=== PATIENT | female | born 1965 | race Caucasian/White ===

== ENCOUNTER 2016-11-23 10:00 | Inpatient (IN) | payer MEDICARE ==
[~2016-11-23] VITALS: Ht 162.6 cm; Wt 59.1 kg
[~2016-11-23 10:00] MED LIST: ACET325T14 PO; AMAN100C7 PO; BACL-19 PO; BISA10SU54 PR; CEFD300C2 PO; CITA10TA4 PO; ENOX40SY4 SQ; LACT1CAP24 PO; LISI30TA4 PO; MAGN400O4 PO; MELA1TAB22 PO; MULT-658 PO; NA P133E2 PR; ONDA4TAB7 PO; OXYC5TAB3 PO; TEMA15CA6 PO; VANC125C2 PO
[2016-11-23] MEDS ORDERED: FENTANYL PF 100 MCG/2ML IV ONE (10:30)
[2016-11-23] MEDS ORDERED: SODIUM CHLORIDE 0.9% 1,000ML IVBOLUS ONE (10:30)
[2016-11-23] MEDS ORDERED: SODIUM CHLORIDE FLUSH 10ML SYR IVF ONE (10:30)
[2016-11-23] MEDS ORDERED: CEFTRIAXONE PMX 1GM/50ML 50 ML IVPB ONE (10:30)
[2016-11-23] MEDS ORDERED: FENTANYL PF 100 MCG/2ML ONE (10:31)
[2016-11-23] MEDS ORDERED: CEFTRIAXONE PMX 1GM/50ML 50 ML ONE (10:42)
[2016-11-23 11:02] LABS: HEMOGLOBIN 9.9 g/dL (11.7-16.4)
[2016-11-23] MEDS ORDERED: ASPI-496 PO (11:12)
[2016-11-23] MEDS ORDERED: VITAMIN B COMPLEX PR (11:12)
[2016-11-23] MEDS ORDERED: POLY17PO5 PO (11:12)
[2016-11-23] MEDS ORDERED: LACT10SO28 PO (11:12)
[2016-11-23] MEDS ORDERED: MEGE400O2 PO (11:12)
[2016-11-23 11:14] LABS: ASPARTATE AMINO TRANSFERASE 12 U/L (15-37); BLOOD UREA NITROGEN 100 mg/dL (7-18)
[2016-11-23] MEDS ORDERED: SENN8.6T98 PO (11:19)
[2016-11-23] MEDS ORDERED: IRON SULFATE PO (11:19)
[2016-11-23] MEDS ORDERED: SODIUM CHLORIDE 0.9% 1,000 ML IV ONE (11:30)
[2016-11-23 11:54] LABS: DIFF TOTAL CELLS COUNTED 100 CELL DIFF
[2016-11-23 11:55] LABS: ANISOCYTOSIS 1+; VERIFY COUNTS? YES
[2016-11-23] MEDS: NOREPINEPHRINE 4 MG in SODIUM CHLORIDE 0.9% 246 ML IV PRN ×2 (12:15→20:06)
[2016-11-23] MEDS ORDERED: LIDOCAINE 1%, 20ML ONE (12:29)
[2016-11-23] MEDS ORDERED: LIDOCAINE 1%, 20ML INFIL ONE (13:00)
[2016-11-23] MEDS: FENTANYL PF 100 MCG/2ML IVPush PRN ×2 (13:10→21:41)
[2016-11-23] MEDS ORDERED: VANCOMYCIN PER PHARMACY MC PRN (16:00)
[2016-11-23] MEDS: VANCOMYCIN 50 MG/ML ORAL SUSP PO SCH ×2 (16:00→20:54)
[2016-11-23] MEDS ORDERED: BISACODYL 10 MG SUPP PR PRN (16:00)
[2016-11-23] MEDS ORDERED: DOCUSATE 100 MG CAPSULE PO PRN (16:00)
[2016-11-23] MEDS ORDERED: ONDANSETRON 2MG/ML, 2ML IVP PRN (16:00)
[2016-11-23] MEDS ORDERED: PHARMACOKINETIC MONITORING MC PRN (16:00)
[2016-11-23] MEDS: HEPARIN 5,000 UNITS/ML, 1ML SQ SCH (16:16)
[2016-11-23] MEDS: PIPERACILLIN/TAZO/PMX 3.375GM 50 ML IV SCH ×2 (16:16→22:52)
[2016-11-23] MEDS ORDERED: VANCOMYCIN 1,200 MG in SODIUM CHLORIDE 0.9% 250 ML IV ONE (16:30)
[2016-11-23] MEDS ORDERED: FAMOTIDINE 20 MG/2 ML IV SCH (21:00)
[2016-11-24] MEDS: HEPARIN 5,000 UNITS/ML, 1ML SQ SCH ×4 (00:13→23:59)
[2016-11-24 04:00] VITALS: BP 98/58
[2016-11-24] MEDS: PIPERACILLIN/TAZO/PMX 3.375GM 50 ML IV SCH (04:13)
[2016-11-24] MEDS: NOREPINEPHRINE 4 MG in SODIUM CHLORIDE 0.9% 246 ML IV PRN ×2 (04:34→19:01)
[2016-11-24 04:50] LABS: BLOOD UREA NITROGEN 69 mg/dL (7-18)
[2016-11-24 04:54] LABS: ASPARTATE AMINO TRANSFERASE 22 U/L (15-37)
[2016-11-24 04:55] LABS: HEMOGLOBIN 8.9 g/dL (11.7-16.4)
[2016-11-24 05:35] LABS: DIFF TOTAL CELLS COUNTED 100 CELL DIFF
[2016-11-24 05:37] LABS: ANISOCYTOSIS 1+; VERIFY COUNTS? YES
[2016-11-24] MEDS: VANCOMYCIN 50 MG/ML ORAL SUSP PO SCH ×4 (05:46→21:00)
[2016-11-24] MEDS: MULTIVITAMIN 1 TABLET PO SCH (09:00)
[2016-11-24] MEDS: POLYETHYLENE GLYCOL 17 GM PACKET PO SCH (09:00)
[2016-11-24] MEDS: ASPIRIN 81 MG TABLET EC PO SCH (09:00)
[2016-11-24] MEDS: LACTULOSE 10 GM/15 ML UDC PO SCH (09:00)
[2016-11-24] MEDS: CITALOPRAM 10 MG TABLET PO SCH (09:00)
[2016-11-24] MEDS: MEROPENEM 1 GM in SODIUM CHLORIDE 0.9% 100 ML IV SCH ×2 (11:35→18:48)
[2016-11-24] MEDS: SODIUM CHLORIDE 0.9% 1,000 ML IV SCH ×3 (11:38→23:59)
[2016-11-24] MEDS: FAMOTIDINE 20 MG/2 ML IV SCH (17:28)
[2016-11-25] MEDS: MEROPENEM 1 GM in SODIUM CHLORIDE 0.9% 100 ML IV SCH ×2 (03:38→11:04)
[2016-11-25] MEDS: NOREPINEPHRINE 4 MG in SODIUM CHLORIDE 0.9% 246 ML IV PRN (03:42)
[2016-11-25] MEDS: VANCOMYCIN 50 MG/ML ORAL SUSP PO SCH ×5 (05:56→20:55)
[2016-11-25 06:40] LABS: HEMOGLOBIN 8.2 g/dL (11.7-16.4)
[2016-11-25 06:59] LABS: DIFF TOTAL CELLS COUNTED 100 CELL DIFF
[2016-11-25 07:00] LABS: BLOOD UREA NITROGEN 45 mg/dL (7-18)
[2016-11-25 07:02] LABS: ANISOCYTOSIS 1+; OVALOCYTES 1+; VERIFY COUNTS? YES
[2016-11-25 07:05] LABS: ASPARTATE AMINO TRANSFERASE 20 U/L (15-37)
[2016-11-25] MEDS: DEXTROSE 5% 1,000 ML IV SCH ×2 (08:28→18:23)
[2016-11-25] MEDS: HEPARIN 5,000 UNITS/ML, 1ML SQ SCH ×2 (08:50→15:34)
[2016-11-25] MEDS: POTASSIUM CHLORIDE 40 MEQ in SODIUM CHLORIDE 0.9% 100 ML IV SCH ×2 (08:58→13:14)
[2016-11-25] MEDS: ASPIRIN 81 MG TABLET EC PO SCH (09:00)
[2016-11-25] MEDS: POLYETHYLENE GLYCOL 17 GM PACKET PO SCH (09:00)
[2016-11-25] MEDS: CITALOPRAM 10 MG TABLET PO SCH (09:08)
[2016-11-25] MEDS: LACTULOSE 10 GM/15 ML UDC PO SCH (09:09)
[2016-11-25] MEDS: MULTIVITAMIN 1 TABLET PO SCH (09:09)
[2016-11-25] MEDS: ACETAMINOPHEN 325 MG TABLET PO PRN (12:44)
[2016-11-25] MEDS: CEFAZOLIN PMX 2GM/100ML 100 ML IV SCH ×2 (12:44→20:00)
[2016-11-25] MEDS: FAMOTIDINE 20 MG/2 ML IV SCH (17:07)
[2016-11-25] MEDS: CEFAZOLIN PMX 2GM/50ML 50 ML IV SCH (20:55)
[2016-11-25 21:00] VITALS: BP 122/79
[2016-11-26] MEDS: HEPARIN 5,000 UNITS/ML, 1ML SQ SCH ×3 (00:08→16:00)
[2016-11-26 01:44] VITALS: BP 121/83
[2016-11-26] MEDS: DEXTROSE 5% 1,000 ML IV SCH ×2 (04:04→15:26)
[2016-11-26 04:37] LABS: ASPARTATE AMINO TRANSFERASE 11 U/L (15-37); BLOOD UREA NITROGEN 27 mg/dL (7-18)
[2016-11-26 04:39] LABS: HEMOGLOBIN 8.6 g/dL (11.7-16.4)
[2016-11-26] MEDS: VANCOMYCIN 50 MG/ML ORAL SUSP PO SCH ×4 (05:19→20:25)
[2016-11-26] MEDS: CEFAZOLIN PMX 2GM/50ML 50 ML IV SCH ×3 (05:19→20:26)
[2016-11-26 07:30] VITALS: BP 130/89
[2016-11-26] MEDS: ASPIRIN 81 MG TABLET EC PO SCH (09:00)
[2016-11-26] MEDS: CITALOPRAM 10 MG TABLET PO SCH (10:09)
[2016-11-26] MEDS: ACETAMINOPHEN 325 MG TABLET PO PRN ×2 (10:09→18:30)
[2016-11-26] MEDS: MULTIVITAMIN 1 TABLET PO SCH (10:09)
[2016-11-26] MEDS: POLYETHYLENE GLYCOL 17 GM PACKET PO SCH (10:10)
[2016-11-26] MEDS: LACTULOSE 10 GM/15 ML UDC PO SCH (10:10)
[2016-11-26 14:12] VITALS: BP 126/86
[2016-11-26 18:56] VITALS: BP 128/90
[2016-11-26] MEDS: FAMOTIDINE 20 MG/2 ML IV SCH (20:26)
[2016-11-27 02:30] VITALS: BP 126/86
[2016-11-27] MEDS: DEXTROSE 5% 1,000 ML IV SCH ×2 (03:09→15:09)
[2016-11-27 03:39] LABS: HEMOGLOBIN 8.9 g/dL (11.7-16.4)
[2016-11-27 03:45] LABS: BLOOD UREA NITROGEN 20 mg/dL (7-18)
[2016-11-27] MEDS: CEFAZOLIN PMX 2GM/50ML 50 ML IV SCH ×3 (05:33→22:41)
[2016-11-27] MEDS: VANCOMYCIN 50 MG/ML ORAL SUSP PO SCH ×5 (05:33→22:41)
[2016-11-27 07:23] VITALS: BP 119/83
[2016-11-27] MEDS: FAMOTIDINE 20 MG/2 ML IV SCH ×2 (10:12→22:41)
[2016-11-27] MEDS: LACTULOSE 10 GM/15 ML UDC PO SCH (10:12)
[2016-11-27] MEDS: ASPIRIN 81 MG TABLET EC PO SCH (10:12)
[2016-11-27] MEDS: CITALOPRAM 10 MG TABLET PO SCH (10:12)
[2016-11-27] MEDS: MULTIVITAMIN 1 TABLET PO SCH (10:13)
[2016-11-27] MEDS: POLYETHYLENE GLYCOL 17 GM PACKET PO SCH (10:13)
[2016-11-27 13:17] VITALS: BP 116/82
[2016-11-27 18:26] VITALS: BP 115/80
[2016-11-28 00:55] VITALS: BP 115/74
[2016-11-28] MEDS: DEXTROSE 5% 1,000 ML IV SCH ×2 (00:57→13:14)
[2016-11-28 04:34] LABS: HEMOGLOBIN 9.2 g/dL (11.7-16.4)
[2016-11-28] MEDS: CEFAZOLIN PMX 2GM/50ML 50 ML IV SCH ×3 (05:36→21:20)
[2016-11-28] MEDS: VANCOMYCIN 50 MG/ML ORAL SUSP PO SCH ×4 (06:06→21:20)
[2016-11-28 08:16] VITALS: BP 99/70
[2016-11-28] MEDS: POLYETHYLENE GLYCOL 17 GM PACKET PO SCH ×2 (09:00→10:34)
[2016-11-28] MEDS: ASPIRIN 81 MG TABLET EC PO SCH (10:33)
[2016-11-28] MEDS: MULTIVITAMIN 1 TABLET PO SCH (10:33)
[2016-11-28] MEDS: FAMOTIDINE 20 MG/2 ML IV SCH ×2 (10:33→21:19)
[2016-11-28] MEDS: CITALOPRAM 10 MG TABLET PO SCH (10:33)
[2016-11-28] MEDS: LACTULOSE 10 GM/15 ML UDC PO SCH (10:34)
[2016-11-28 14:00] VITALS: BP 98/66
[2016-11-28 20:50] VITALS: BP 106/71
[2016-11-29] MEDS: DEXTROSE 5% 1,000 ML IV SCH ×2 (00:37→11:58)
[2016-11-29 01:54] VITALS: BP 107/76
[2016-11-29] MEDS: CEFAZOLIN PMX 2GM/50ML 50 ML IV SCH ×3 (05:34→21:49)
[2016-11-29] MEDS: VANCOMYCIN 50 MG/ML ORAL SUSP PO SCH ×4 (05:34→21:49)
[2016-11-29 06:21] LABS: HEMOGLOBIN 8.2 g/dL (11.7-16.4)
[2016-11-29 07:58] VITALS: BP 109/70
[2016-11-29] MEDS: POLYETHYLENE GLYCOL 17 GM PACKET PO SCH (08:53)
[2016-11-29] MEDS: CITALOPRAM 10 MG TABLET PO SCH (09:01)
[2016-11-29] MEDS: LACTULOSE 10 GM/15 ML UDC PO SCH (09:01)
[2016-11-29] MEDS: ASPIRIN 81 MG TABLET EC PO SCH (09:01)
[2016-11-29] MEDS: MULTIVITAMIN 1 TABLET PO SCH (09:01)
[2016-11-29] MEDS: FAMOTIDINE 20 MG/2 ML IV SCH ×2 (09:01→21:49)
[2016-11-29 12:42] VITALS: BP 100/69
[2016-11-29 19:47] VITALS: BP 109/75
[2016-11-30 00:59] VITALS: BP 96/61
[2016-11-30 03:56] LABS: HEMOGLOBIN 7.9 g/dL (11.7-16.4)
[2016-11-30 04:08] LABS: BLOOD UREA NITROGEN 9 mg/dL (7-18)
[2016-11-30 05:06] LABS: SRA, LOW DOSE HEPARIN 2 % (0-20)
[2016-11-30] MEDS: CEFAZOLIN PMX 2GM/50ML 50 ML IV SCH ×3 (05:38→21:17)
[2016-11-30] MEDS: VANCOMYCIN 50 MG/ML ORAL SUSP PO SCH ×4 (05:38→21:17)
[2016-11-30] MEDS ORDERED: POTASSIUM CHLORIDE 20 MEQ TAB.ER.PRT PO ONE (07:30)
[2016-11-30 08:42] VITALS: BP 103/68
[2016-11-30] MEDS: POLYETHYLENE GLYCOL 17 GM PACKET PO SCH (09:00)
[2016-11-30] MEDS: FAMOTIDINE 20 MG/2 ML IV SCH ×2 (10:01→21:17)
[2016-11-30] MEDS: ASPIRIN 81 MG TABLET EC PO SCH (10:01)
[2016-11-30] MEDS: MULTIVITAMIN 1 TABLET PO SCH (10:01)
[2016-11-30] MEDS: LACTULOSE 10 GM/15 ML UDC PO SCH (10:02)
[2016-11-30] MEDS: CITALOPRAM 10 MG TABLET PO SCH (11:21)
[2016-11-30 13:53] VITALS: BP 103/69
[2016-11-30 20:00] VITALS: BP 105/72
[2016-12-01 02:08] VITALS: BP 96/70
[2016-12-01] MEDS: VANCOMYCIN 50 MG/ML ORAL SUSP PO SCH ×4 (05:35→20:37)
[2016-12-01] MEDS: CEFAZOLIN PMX 2GM/50ML 50 ML IV SCH ×3 (05:35→20:37)
[2016-12-01 06:50] VITALS: BP 110/71
[2016-12-01] MEDS: FAMOTIDINE 20 MG/2 ML IV SCH ×2 (09:01→20:37)
[2016-12-01] MEDS: POLYETHYLENE GLYCOL 17 GM PACKET PO SCH (09:01)
[2016-12-01] MEDS: ASPIRIN 81 MG TABLET EC PO SCH (09:01)
[2016-12-01] MEDS: LACTULOSE 10 GM/15 ML UDC PO SCH (09:01)
[2016-12-01] MEDS: MULTIVITAMIN 1 TABLET PO SCH (09:01)
[2016-12-01] MEDS: CITALOPRAM 10 MG TABLET PO SCH (09:01)
[2016-12-01 09:13] LABS: HEMOGLOBIN 8.7 g/dL (11.7-16.4)
[2016-12-01 09:25] LABS: BLOOD UREA NITROGEN 7 mg/dL (7-18)
[2016-12-01 14:00] VITALS: BP 110/76
[2016-12-01 20:17] VITALS: BP 115/81
[2016-12-02 02:24] VITALS: BP 113/74
[2016-12-02] MEDS: VANCOMYCIN 50 MG/ML ORAL SUSP PO SCH ×2 (05:57→13:02)
[2016-12-02] MEDS: CEFAZOLIN PMX 2GM/50ML 50 ML IV SCH ×2 (05:57→13:02)
[2016-12-02] MEDS: POLYETHYLENE GLYCOL 17 GM PACKET PO SCH (09:00)
[2016-12-02] MEDS: MULTIVITAMIN 1 TABLET PO SCH (09:04)
[2016-12-02] MEDS: ASPIRIN 81 MG TABLET EC PO SCH (09:04)
[2016-12-02] MEDS: FAMOTIDINE 20 MG/2 ML IV SCH (09:04)
[2016-12-02] MEDS: CITALOPRAM 10 MG TABLET PO SCH (09:04)
[2016-12-02] MEDS: LACTULOSE 10 GM/15 ML UDC PO SCH (09:04)
[2016-12-02 09:24] VITALS: BP 112/77
[2016-12-02] MEDS ORDERED: CEFA2PIG3 IVPB (10:48)
[2016-12-02] MEDS ORDERED: FLU VACC QS2016-17 (36MOS+)UP/PF 0.5 ML IM-VACC ONE (11:30)
[2016-12-02] MEDS ORDERED: PNEUMOCOCCAL 23 VACCINE IM-VACC ONE (11:30)
[2016-12-02 15:13] VITALS: BP 105/73
== END 2016-12-02 16:45 | DRG 871 ==
LOC: ED 12:07 → EDIP 12:08 → ED 13:17 → CCU 14:04 → 5SO 11-25 18:51 → 4EST 11-28 01:30
PROVIDERS: ADMIT Hospitalist; ATTEND Hospitalist
PROC: 0T9B70Z Drainage of Bladder with Drainage Device, Via Natural or Artificial Opening (ICD-10-PCS; principal; 2016-11-23)
PROC: 02HV33Z Insertion of Infusion Device into Superior Vena Cava, Percutaneous Approach (ICD-10-PCS; 2016-11-23)
DX: A41.9 Sepsis, unspecified organism (principal); R65.21 Severe sepsis with septic shock; E43 Unspecified severe protein-calorie malnutrition; G93.41 Metabolic encephalopathy; N17.9 Acute kidney failure, unspecified; E87.0 Hyperosmolality and hypernatremia; N30.90 Cystitis, unspecified without hematuria; D64.9 Anemia, unspecified; B96.4 Proteus (mirabilis) (morganii) as the cause of diseases classified elsewhere; D69.6 Thrombocytopenia, unspecified; E83.51 Hypocalcemia; E86.1 Hypovolemia; G35 Multiple sclerosis; I10 Essential (primary) hypertension; Z66 Do not resuscitate; Z68.22 Body mass index [BMI] 22.0-22.9, adult; Z86.19 Personal history of other infectious and parasitic diseases; Z87.440 Personal history of urinary (tract) infections; Z23 Encounter for immunization
CPT/HCPCS: 36415; 36556; 71010; 74230; 80048; 80053; 81001; 82040; 82330; 82542; 83605; 83735; 84145; 85025; 85610; 85730; 87040; 87077; 87081; 87086; 87186; 90686; 90732; 93005; 96361; 96365; 96375; J0690; J0696; J1644; J2185; J2543; J3010; J3370; J3480; J3490; J7070; J7030; J7050; S0028